=== PATIENT | male | born 1955 | race Caucasian/White ===

== ENCOUNTER 2016-08-07 11:26 | Outpatient (CLI) | payer OTHER | END 2016-08-07 11:27 | disposition home or self-care (01) | DX: G47.33 Obstructive sleep apnea (adult) (pediatric) (principal) ==

== ENCOUNTER 2016-08-23 08:00 | Outpatient (CLI) | payer OTHER | END 2016-08-23 08:01 | disposition home or self-care (01) | DX: M25.50 Pain in unspecified joint (principal) ==

== ENCOUNTER 2016-09-05 21:56 | Outpatient (CLI) | payer OTHER | END 2016-09-05 21:57 | disposition home or self-care (01) | DX: G47.33 Obstructive sleep apnea (adult) (pediatric) (principal); Z68.38 Body mass index [BMI] 38.0-38.9, adult ==

== ENCOUNTER 2016-09-24 09:29 | Outpatient (CLI) | payer OTHER | END 2016-09-24 09:30 | disposition home or self-care (01) | LOC: SC 09:29 | PROVIDERS: ATTEND Internal Medicine Pulmonary Disease | DX: G47.33 Obstructive sleep apnea (adult) (pediatric) (principal) | CPT/HCPCS: 99212; 99213 ==

== ENCOUNTER 2016-11-08 08:54 | Outpatient (CLI) | payer OTHER ==
[2016-11-08 13:37] LABS: CALCIUM 9.2 mg/dL (8.5-10.3); CREATININE 1.1 mg/dL (0.6-1.2); POTASSIUM 4.1 mmol/L (3.5-5.0)
== END 2016-11-08 08:55 | disposition home or self-care (01) ==
LOC: LAB.WCP 08:54
PROVIDERS: ATTEND Physician Assistant Medical
DX: N28.9 Disorder of kidney and ureter, unspecified (principal)
CPT/HCPCS: 36415; 80048

== ENCOUNTER 2016-12-26 14:00 | Outpatient (CLI) | payer OTHER ==
[2016-12-28 16:26] LABS: TEST RESULT REPORT (())
== END 2016-12-26 14:01 | disposition home or self-care (01) ==
LOC: LAB.WCP 14:00
PROVIDERS: ATTEND Internal Medicine Rheumatology
DX: M25.50 Pain in unspecified joint (principal); M79.1 Myalgia
CPT/HCPCS: 36415; 81599; 82550; 84443; 85651; 86140; 86200; 86812

== ENCOUNTER 2017-02-07 09:49 | Outpatient (CLI) | payer OTHER ==
[2017-02-07 09:33] LABS: CALCIUM 9.5 mg/dL (8.5-10.3); POTASSIUM 4.1 mmol/L (3.5-5.0)
[2017-02-07] MEDS ORDERED: GADOBUTROL 15 MMOL/15 ML VIAL ONE (10:14)
--- NOTE | 2017-02-08 12:03 | MRI Report ---
EXAM: MRI LUMBAR SPINE WITHOUT AND WITH CONTRAST EXAM DATE: 02/07/2017 11:18 AM. CLINICAL HISTORY: Degenerative disk disease, lumbar spine. COMPARISONS: MRI lumbar spine 07/05/2016. TECHNIQUE: Multiplanar, multisequence T1-weighted and fluid-sensitive sequences of the lumbar spine f rom T12 to S1 before and after administration of intravenous contrast. IV contrast: 13 mL IV Gadavist . Other: None. FINDINGS: Spinal Cord: The conus terminates at L1-L2. No signal abnormality in the visualized spinal cord. Alignment: Normal. No scoliosis or spondylolisthesis. Bone Marrow: Five lup-ylx-lvyegaq lumbar vertebral bodies are assumed. No gross fractures or bone les ions. No bone marrow edema or abnormal enhancement. Disk Levels/Facets: T12-L1: Unremarkable. L1-L2: Unremarkable. L2-L3: Disk desiccation, circumferential bulge, right greater than left facet arthropathy and facet j oint effusion. Synovial cyst formation. Mild bilateral subarticular narrowing and mild canal narrowin g. Mild bilateral foraminal narrowing. L3-L4: Disk desiccation. Mild bilateral facet arthropathy and ligamentum flavum thickening. No signif icant canal or subarticular narrowing. Thhs-vk-sopecbre bilateral foraminal narrowing. A focal right extraforaminal extrusion is seen (image 13 series 401) measuring 8 mm, abutting and deforming the kaila tral aspect of the right L3 nerve root. If symptomatic, could be correlated with right L3 radiculopat hy. L4-L5: Disk desiccation. Circumferential bulge. Postoperative changes of right hemilaminotomy. No sig nificant spinal canal or subarticular narrowing. Moderate right foraminal narrowing. Right L4 nerve r oots appear compressed between the right foraminal disk and hypertrophic right L4-L5 facet, although there is ample fat surrounding the exiting nerve root otherwise. L5-S1: Mild bilateral facet arthropathy with significant canal or foraminal narrowing. Spinal Canal: No enhancing masses within the spinal canal. No epidural abscess. Musculature: Normal. No edema, abnormal enhancement, or fatty atrophy. Other: The visualized pelvic cavity is unremarkable. IMPRESSION: 1. Chronic postsurgical changes of right hemilaminotomy at L4-L5. No recurrent disk herniation or imp ingement of the nerve roots at this level. 2. At L2-L3, circumferential bulge, mild bilateral foraminal and subarticular narrowing. 3. At L3-L4, circumferential bulge and bilateral facet arthropathy. Mild subarticular narrowing. A fo kamala right extraforaminal protrusion is seen abutting and deforming the exiting right L3 nerve root. T his could be correlated with right L3 radiculopathy. 4. At L4-L5, bilateral facet arthropathy and circumferential bulge. Moderate bilateral foraminal narr owing around the exiting L4 nerve roots although relatively similar to preoperative MRI 07/05/2006. Comment: The following findings are so common in adults without low back pain that while we report th eir presence, they must be interpreted with caution and in the context of the clinical situation. (Re fiona Liao et al, Spine 2001) Prevalence of findings in patients without low back pain: Disk degeneration (any evidence): 92% Disk desiccation/T2 signal loss: 83% Disk height loss: 56% Disk bulge: 64% Disk protrusion: 32% Annular tear/high intensity zone: 38% [facility] Referring Provider Line: [phone] SITE ID: [id number]
== END 2017-02-07 09:50 | disposition home or self-care (01) ==
LOC: DI 09:49
PROVIDERS: ATTEND Physician Assistant Medical
DX: M51.36 Other intervertebral disc degeneration, lumbar region (principal); M47.896 Other spondylosis, lumbar region; M51.26 Other intervertebral disc displacement, lumbar region
CPT/HCPCS: 36415; 72158; 80048; A9585

== ENCOUNTER 2017-05-03 08:43 | Outpatient (CLI) | payer OTHER ==
[2017-05-03 13:00] LABS: BASOPHILS # (AUTO) 0.2 10^3/uL (0.0-0.1); BASOPHILS % (AUTO) 2.2 %; EOSINOPHILS % (AUTO) 12.8 %; HGB - HEMOGLOBIN 15.2 g/dL (14.0-18.0); LYMPHOCYTES # (AUTO) 1.9 10^3/uL (1.5-3.5); MEAN CORPUSCULAR HEMOGLOBIN 29.7 pg (27.0-31.0); MEAN CORPUSCULAR HGB CONC 34.1 g/dL (32.0-36.0); MEAN CORPUSCULAR VOLUME 86.9 fL (80.0-94.0); MEAN PLATELET VOLUME 9.1 fL (7.4-11.4); MONOCYTES # (AUTO) 0.5 10^3/uL (0.0-1.0); MONOCYTES % (AUTO) 5.9 %; NEUTROPHILS # (AUTO) 4.4 10^3/uL (1.5-6.6); NEUTROPHILS % (AUTO) 55.1 %; PLT - PLATELET COUNT 216 10^3/uL (130-450); RED BLOOD COUNT 5.12 10^6/uL (4.70-6.10); RED CELL DISTRIBUTION WIDTH 12.9 % (12.0-15.0); WHITE BLOOD COUNT 7.9 x10^3/uL (4.8-10.8)
[2017-05-03 13:22] LABS: ALBUMIN 4.3 g/dL (3.2-5.5); ALBUMIN/GLOBULIN RATIO 1.5 (1.0-2.2); ALKALINE PHOSPHATASE 61 IU/L (42-121); ALT ALANINE AMINOTRANSFERASE 27 IU/L (10-60); AST ASPARTATE AMINOTRANSFERASE 23 IU/L (10-42); BILIRUBIN,TOTAL 0.7 mg/dL (0.2-1.0); BUN - BLOOD UREA NITROGEN 17 mg/dL (6-20); CALCIUM 9.4 mg/dL (8.5-10.3); CARBON DIOXIDE - CO2 25 mmol/L (21-32); CHLORIDE 102 mmol/L (101-111); CHOL/HDL RATIO 6.1 (<5.0); CHOLESTEROL 300 mg/dL; CREATININE 0.8 mg/dL (0.6-1.2); GFR - MDRD 98 (>89); GLUCOSE 94 mg/dL (70-100); HDL CHOLESTEROL 49 mg/dL; LDL CHOLESTEROL,CALCULATED 207 mg/dL; LDL/HDL RATIO 4.2 (<3.6); SODIUM 135 mmol/L (135-145); TOTAL PROTEIN 7.1 g/dL (6.7-8.2); VLDL CHOLESTEROL 44 mg/dL
== END 2017-05-03 08:44 | disposition home or self-care (01) ==
LOC: LAB.WCP 08:43
PROVIDERS: ATTEND Physician Assistant Medical
DX: Z00.00 Encounter for general adult medical examination without abnormal findings (principal); Z12.5 Encounter for screening for malignant neoplasm of prostate; E29.1 Testicular hypofunction
CPT/HCPCS: 36415; 80050; 80061; 81599; 83721; 84153

== ENCOUNTER 2017-05-07 08:00 | Outpatient (CLI) | payer OTHER | END 2017-05-07 08:01 | disposition home or self-care (01) | LOC: LAB.WCP 08:00 | PROVIDERS: ATTEND Physician Assistant Medical | DX: Z00.00 Encounter for general adult medical examination without abnormal findings (principal); E29.1 Testicular hypofunction; Z12.5 Encounter for screening for malignant neoplasm of prostate | CPT/HCPCS: 36415; 81599; 84270; 84402; 84403 ==

== ENCOUNTER 2017-06-12 09:09 | Outpatient (CLI) | payer OTHER ==
[2017-06-12] MEDS ORDERED: ALBUTEROL NEB 2.5 MG/3 ML INH ONE (11:00)
== END 2017-06-12 09:10 | disposition home or self-care (01) ==
LOC: RT 09:09
PROVIDERS: ATTEND Physician Assistant Medical
DX: R06.00 Dyspnea, unspecified (principal)
CPT/HCPCS: 94060; 94729; J7613

== ENCOUNTER 2017-07-01 08:02 | Outpatient (CLI) | payer OTHER ==
[2017-07-01 14:02] LABS: ALBUMIN 4.3 g/dL (3.2-5.5); ALBUMIN/GLOBULIN RATIO 1.5 (1.0-2.2); ALKALINE PHOSPHATASE 64 IU/L (42-121); ALT ALANINE AMINOTRANSFERASE 45 IU/L (10-60); AST ASPARTATE AMINOTRANSFERASE 47 IU/L (10-42); BILIRUBIN,TOTAL 0.8 mg/dL (0.2-1.0); BUN - BLOOD UREA NITROGEN 13 mg/dL (6-20); CALCIUM 9.1 mg/dL (8.5-10.3); CARBON DIOXIDE - CO2 26 mmol/L (21-32); CHLORIDE 104 mmol/L (101-111); CHOL/HDL RATIO 3.4 (<5.0); CHOLESTEROL 175 mg/dL; CREATININE 0.9 mg/dL (0.6-1.2); GFR - MDRD 86 (>89); GLUCOSE 99 mg/dL (70-100); HDL CHOLESTEROL 51 mg/dL; LDL CHOLESTEROL,CALCULATED 80 mg/dL; LDL/HDL RATIO 1.6 (<3.6); SODIUM 135 mmol/L (135-145); TOTAL PROTEIN 7.1 g/dL (6.7-8.2); VLDL CHOLESTEROL 44 mg/dL
== END 2017-07-01 08:03 | disposition home or self-care (01) ==
LOC: LAB.WCP 08:02
PROVIDERS: ATTEND Physician Assistant Medical
DX: E78.5 Hyperlipidemia, unspecified (principal)
CPT/HCPCS: 36415; 80053; 80061; 83721

== ENCOUNTER 2017-07-03 08:30 | Outpatient (CLI) | payer OTHER | END 2017-07-03 08:31 | disposition home or self-care (01) | LOC: LAB.WCP 08:30 | PROVIDERS: ATTEND Physician Assistant Medical | DX: M51.36 Other intervertebral disc degeneration, lumbar region (principal) | CPT/HCPCS: 80307; 80354; 80361; 80362; 80365; 81599 ==

== ENCOUNTER 2017-11-20 08:00 | Outpatient (CLI) | payer OTHER ==
[2017-11-20 12:55] LABS: ALBUMIN 4.1 g/dL (3.2-5.5); ALBUMIN/GLOBULIN RATIO 1.5 (1.0-2.2); ALKALINE PHOSPHATASE 61 IU/L (42-121); ALT ALANINE AMINOTRANSFERASE 41 IU/L (10-60); AST ASPARTATE AMINOTRANSFERASE 32 IU/L (10-42); BILIRUBIN,TOTAL 0.8 mg/dL (0.2-1.0); BUN - BLOOD UREA NITROGEN 14 mg/dL (6-20); CALCIUM 9.1 mg/dL (8.5-10.3); CARBON DIOXIDE - CO2 26 mmol/L (21-32); CHLORIDE 104 mmol/L (101-111); CHOLESTEROL 151 mg/dL; CREATININE 0.9 mg/dL (0.6-1.2); GFR - MDRD 86 (>89); GLUCOSE 103 mg/dL (70-100); HDL CHOLESTEROL 45 mg/dL; LDL CHOLESTEROL,CALCULATED 73 mg/dL; SODIUM 136 mmol/L (135-145); TOTAL PROTEIN 6.8 g/dL (6.7-8.2); VLDL CHOLESTEROL 33 mg/dL
[2017-11-20 12:56] LABS: CHOL/HDL RATIO 3.4 (<5.0); LDL/HDL RATIO 1.6 (<3.6)
== END 2017-11-20 08:01 | disposition home or self-care (01) ==
LOC: LAB.WCP 08:00
PROVIDERS: ATTEND Physician Assistant Medical
DX: E78.5 Hyperlipidemia, unspecified (principal)
CPT/HCPCS: 36415; 80053; 80061; 83721

== ENCOUNTER 2018-07-03 08:46 | Outpatient (CLI) | payer OTHER ==
--- NOTE | 2018-07-03 11:29 | XRAY Report ---
Reason: WHEEZING,DYSPNEA ON EXERTION,BACK PAIN THORACIC Procedure Date: 07/03/2018 Accession Number: [id number] / [id number] Procedure: WCP - Chest 2 View X-Ray CPT Code: 41891 FULL RESULT: EXAM: CHEST RADIOGRAPHY EXAM DATE: 07/03/2018 08:56 AM. CLINICAL HISTORY: Wheezing, dyspnea on exertion, back pain thoracic. COMPARISON: Chest 2 view 05/10/2017 10:38 AM. TECHNIQUE: 2 views. FINDINGS: Lungs/Pleura: No focal opacities evident. No pleural effusion. No pneumothorax. Normal volumes. Mediastinum: Prominent pulmonary arteries and a stable cardiomediastinal silhouette, no cardiac enlargement. Other: None. IMPRESSION: No acute airspace disease. RAD[facility]
== END 2018-07-03 08:47 | disposition home or self-care (01) ==
LOC: DI.WCP 08:46
PROVIDERS: ATTEND Nurse Practitioner
DX: R06.2 Wheezing (principal); R06.09 Other forms of dyspnea; M54.6 Pain in thoracic spine
CPT/HCPCS: 71046

== ENCOUNTER 2018-07-15 11:09 | Outpatient (CLI) | payer OTHER ==
--- NOTE | 2018-07-15 12:55 | XRAY Report ---
Reason: FOOT PAIN, RIGHT Procedure Date: 07/15/2018 Accession Number: [id number] / [id number] Procedure: WCP - Foot 2 View RT CPT Code: FULL RESULT: EXAM: RIGHT FOOT RADIOGRAPHY EXAM DATE: 07/15/2018 11:26 AM. CLINICAL HISTORY: Pain fifth toe. COMPARISON: None. TECHNIQUE: 2 views. FINDINGS: Bones: Normal. No fractures or bone lesions. Joints: Normal. No subluxations. Soft Tissues: Normal. No soft tissue swelling. IMPRESSION: Normal foot radiography. RADIA
--- NOTE | 2018-07-15 12:55 | XRAY Report ---
Reason: URI Procedure Date: 07/15/2018 Accession Number: [id number] / [id number] Procedure: WCP - Chest 2 View X-Ray CPT Code: 72152 FULL RESULT: EXAM: CHEST RADIOGRAPHY EXAM DATE: 07/15/2018 11:26 AM. CLINICAL HISTORY: Upper respiratory infection. COMPARISON: CHEST 2 VIEW 07/03/2018 8:44 AM. TECHNIQUE: 2 views. FINDINGS: Lungs/Pleura: No focal opacities evident. No pleural effusion. No pneumothorax. Normal volumes. Mediastinum: Heart and mediastinal contours are unremarkable. Other: None. IMPRESSION: Normal 2-view chest radiography. RADIA
== END 2018-07-15 11:10 | disposition home or self-care (01) ==
LOC: DI.WCP 11:09
PROVIDERS: ATTEND Physician Assistant Medical
DX: J06.9 Acute upper respiratory infection, unspecified (principal); M79.671 Pain in right foot
CPT/HCPCS: 71046

== ENCOUNTER 2018-08-26 07:41 | Outpatient (CLI) | payer OTHER ==
[2018-08-26 13:05] LABS: BASOPHILS # (AUTO) 0.1 10^3/uL (0.0-0.1); BASOPHILS % (AUTO) 1.3 %; EOSINOPHILS # (AUTO) 0.8 10^3/uL (0.0-0.7); EOSINOPHILS % (AUTO) 10.8 %; LYMPHOCYTES % (AUTO) 25.4 %; MEAN CORPUSCULAR HEMOGLOBIN 29.1 pg (27.0-31.0); MEAN PLATELET VOLUME 9.4 fL (7.4-11.4); MONOCYTES # (AUTO) 0.5 10^3/uL (0.0-1.0); MONOCYTES % (AUTO) 6.4 %; NEUTROPHILS # (AUTO) 4.4 10^3/uL (1.5-6.6); NEUTROPHILS % (AUTO) 56.1 %; PLT - PLATELET COUNT 231 10^3/uL (130-450); RED BLOOD COUNT 5.15 10^6/uL (4.70-6.10); RED CELL DISTRIBUTION WIDTH 13.6 % (12.0-15.0); WHITE BLOOD COUNT 7.8 x10^3/uL (4.8-10.8)
[2018-08-26 13:13] LABS: ALBUMIN 4.5 g/dL (3.2-5.5); ALBUMIN/GLOBULIN RATIO 1.6 (1.0-2.2); ALKALINE PHOSPHATASE 57 IU/L (42-121); ALT ALANINE AMINOTRANSFERASE 36 IU/L (10-60); AST ASPARTATE AMINOTRANSFERASE 29 IU/L (10-42); BILIRUBIN,TOTAL 0.7 mg/dL (0.2-1.0); BUN - BLOOD UREA NITROGEN 20 mg/dL (6-20); CALCIUM 9.4 mg/dL (8.5-10.3); CARBON DIOXIDE - CO2 23 mmol/L (21-32); CHLORIDE 102 mmol/L (101-111); CHOL/HDL RATIO 3.6 (<5.0); CHOLESTEROL 177 mg/dL; GFR - MDRD 76 (>89); GLUCOSE 93 mg/dL (70-100); HDL CHOLESTEROL 49 mg/dL; LDL CHOLESTEROL,CALCULATED 102 mg/dL; LDL/HDL RATIO 2.1 (<3.6); SODIUM 136 mmol/L (135-145); TOTAL PROTEIN 7.3 g/dL (6.7-8.2); VLDL CHOLESTEROL 26 mg/dL
== END 2018-08-26 07:42 | disposition home or self-care (01) ==
LOC: LAB.WCP 07:41
PROVIDERS: ATTEND Physician Assistant Medical
DX: Z00.00 Encounter for general adult medical examination without abnormal findings (principal); E78.5 Hyperlipidemia, unspecified; Z12.5 Encounter for screening for malignant neoplasm of prostate
CPT/HCPCS: 36415; 80053; 80061; 83721; 84153; 84443; 85025

== ENCOUNTER 2019-02-02 10:48 | Outpatient (CLI) | payer OTHER ==
--- NOTE | 2019-02-02 11:47 | SLEEP CARE CONSULTATION ---
Information from patient questionnaire entered by Aubrie Smith. I have reviewed and concur with the information entered by Aubrie Smith. This document represents the service I personally performed and the decisions made by me, Nati Duong, RN, MSN, DIETARY TECH. History of Present Illness Previous diagnosis: Severe, Obstructive Sleep Apnea-Hypopnea Syndrome AHI: 33.9 Reason for CPAP/BiPAP follow up: annual Equipment type: CPAP Equipment obtained from: [facility] (having difficulty getting supplies) Mask style: Nasal (Dreamwear) Mask brand: Respironics Backup mask available: No (keep the current mask when replaced for spare) Last cushion change: 2 months ago due to problems getting supplies. Prior sleep studies: Yes Year and Where: 2007 [facility] Sleep [facility] CPAP Compliance Data - Data Reviewed with Patient Average duration of nightly device use: 7H 8M Compliance rate %: 93.3 Current pressure setting (cmH2O): 8-12 Humidity setting: OFF Heated hose settinFF Average residual AHI: 5.4 Central apnea: 0.7 Obstructive apnea: 1.7 Hypopnea: 3.0 Subjective Missed days of use due to: reports: other (due to back pain when sleeps in recliner. ) Patient concerns: reports: dry mouth, nose, throat (rare). denies: aerophagia, mask discomfort, air blowing in eyes, mask leak noise, condensation in mask/hose, nasal congestion, epistaxis Observed to snore while using device: Yes (noted occasionally) Current pressure setting perceived as: comfortable On therapy, patient: reports: sleeping better (cant sleep without CPAP), awakening more refreshed, being more awake and alert during the day, more rested overall, drowsiness while driving Initial [place] Sleepiness Scale score: 2 Current [place] Sleepiness Scale score: 2 Allergies and Home Medications Known drug allergies: Yes (hydroxyzine, piroxicam, topamax) Home medication list reviewed: Yes Allergy and home medication list: diclofenac 75mg twice a day Pristig ER 100mg daily Ability 10mg daily prilosec 20mg twice daily oxycodone 5mg 1-2 tablets daily up to 3 max as needed. Physical Exam Blood Pressure: 110/70 Heart Rate: 81 O2 Saturation: 96 Height: 6 ft 2 in Weight: 292 lb 3.2 oz Body Mass Index: 37.5 BMI Classification: Obesity Class 2 Impression and Plan 1. Obstructive Sleep Apnea-Hypopnea Syndrome, severe, with good treatment compliance and slightly elevated residual apnea. On CPAP therapy, the patient has better sleep quality and is more rested overall. For elevated residual AHI, I will change his autoCPAP range to [phone]. He is to contact me if pressure change uncomfortable or if snore not resolved. He was informed how his weight gain could have increased the increase in pressure need. He is currently trying to lose weight. He was informed of symptoms to report for further pressure adjustment. When unable to sleep in bed due to back pain, he is advised to take CPAP with him by using an electric outlet strip by bed and chair for ease of transfer. For his concerns about supplies, I informed him that he could transfer to another company and he would like to . I will have the scheduling coordinator inform him of his options. A DWO will be made. Patient's apnea severity and rationale for treatment to reduce apnea, improve sleep quality and reduce cardiovascular and cerebrovascular events was reviewed. I also reviewed the benefit of consistent device use of CPAP for his anxiety and depression. * * Change CPAP pressure to 9-15 cmH2O * transfer to new DME * Add electric outlet strip to bedside and recliner for ease of CPAP use * Notify me if snoring with mask or feeling that the pressure is too much or too little * Attempt to lose weight * Return for follow up in 1 year , or sooner if concerns arise I spent 100% of this 30 minute visit face to face with the patient with greater than 50% of this was spent time counseling the patient and coordination of care.
[2019-02-02 11:48] VITALS: BP 110/70
== END 2019-02-02 10:49 | disposition home or self-care (01) ==
LOC: SC 10:48
PROVIDERS: ATTEND Nurse Practitioner Family
DX: G47.33 Obstructive sleep apnea (adult) (pediatric) (principal); E66.9 Obesity, unspecified; Z68.37 Body mass index [BMI] 37.0-37.9, adult
CPT/HCPCS: 99212; 99214

== ENCOUNTER 2020-07-13 07:00 | Outpatient (CLI) | payer OTHER ==
--- NOTE | 2020-07-13 18:14 | XRAY Report ---
PROCEDURE: Chest 2 View X-Ray INDICATIONS: DYSPNEA ON EXERTION TECHNIQUE: 2 view(s) of the chest. COMPARISON: 07/15/2018 2 view chest. FINDINGS: Surgical changes and devices: None. Lungs and pleura: No pleural effusions or pneumothorax. Lungs are mildly abnormal with a mild inter stitial prominence. Mediastinum: Mediastinal contours are normal. Heart size is normal. Bones and chest wall: No suspicious bony abnormalities. Soft tissues appear unremarkable. IMPRESSION: Nonspecific mild interstitial prominence, no pneumonia found. No sign of CHF. The heart size is not enlarged. Reviewed by: Francisco Beyer MD on 07/13/2020 5:13 PM [place] Approved by: Francisco Beyer MD on 07/13/2020 5:13 PM [facility] Station ID: [id number]
[2020-07-13 18:44] LABS: CALCIUM 9.1 mg/dL (8.5-10.3); CREATININE 1.1 mg/dL (0.6-1.2); POTASSIUM 4.5 mmol/L (3.5-5.0)
== END 2020-07-13 23:59 | disposition home or self-care (01) ==
LOC: DI.WCP 07:00
PROVIDERS: ATTEND Physician Assistant Medical
DX: R06.09 Other forms of dyspnea (principal)
CPT/HCPCS: 36415; 80048

== ENCOUNTER 2020-07-21 09:19 | Outpatient (CLI) | payer OTHER ==
[2020-07-21] MEDS ORDERED: ALBUTEROL 1 PUFF INH STA (10:37)
== END 2020-07-21 09:20 | disposition home or self-care (01) ==
LOC: RT 09:19
PROVIDERS: ATTEND Physician Assistant Medical
DX: R06.09 Other forms of dyspnea (principal)
CPT/HCPCS: 94060; 94729

== ENCOUNTER 2020-08-10 09:08 | Outpatient (CLI) | payer OTHER ==
[2020-08-10] MEDS ORDERED: IOPAMIDOL-300 100 ML VIAL ONE (09:10)
[2020-08-10] MEDS ORDERED: IOPAMIDOL-300 100 ML VIAL IVP ONE (09:48)
--- NOTE | 2020-08-10 16:29 | CT Report ---
PROCEDURE: CHEST W INDICATIONS: DYSPNEA ON EXERTION CONTRAST: IV CONTRAST: Isovue 300 ml: 100 PO CONTRAST: *NO PO CONTRAST TECHNIQUE: After the administration of intravenous contrast, 5 mm thick sections acquired from the pulmonary api zaina to the posterior costophrenic angles. 7 mm thick coronal MIP reformats were acquired. For radia tion dose reduction, the following was used: automated exposure control, adjustment of mA and/or kV according to patient size. COMPARISON: None. FINDINGS: Image quality: Excellent. Lungs and pleura: No acute air space opacities. No pleural effusions or pneumothorax. Central and peripheral airways are patent and normal in caliber. Mediastinum: Heart size is normal. No pericardial effusion. No mediastinal or hilar adenopathy by size criteria. Thoracic aorta and central pulmonary arteries are normal in size. Esophagus is eloina l in caliber. No hiatal hernia. Bones and chest wall: No suspicious bony lesions. No vertebral body compression fractures. No axil rae or supraclavicular adenopathy by size criteria. Thyroid gland appears normal where well seen. Abdomen: Visualized upper abdominal solid organs appear normal. Upper abdominal bowel loops are nor mal in caliber. IMPRESSION: No pulmonary embolus seen, no evidence of COPD or pneumonia from this study. Source of dyspnea on exe rtion is not found. Reviewed by: Francisco Beyer MD on 08/10/2020 4:28 PM PDT Approved by: Francisco Beyer MD on 08/10/2020 4:28 PM PDT Station ID: [id number]
== END 2020-08-10 09:09 | disposition home or self-care (01) ==
LOC: DI 09:08
PROVIDERS: ATTEND Physician Assistant Medical
DX: R06.09 Other forms of dyspnea (principal)
CPT/HCPCS: 71260; Q9967

== ENCOUNTER 2020-10-10 08:00 | Outpatient (CLI) | payer OTHER ==
[2020-10-10 13:37] LABS: CHOL/HDL RATIO 5.4 (<5.0); CHOLESTEROL 217 mg/dL; HDL CHOLESTEROL 40 mg/dL; LDL CHOLESTEROL,CALCULATED 151 mg/dL; LDL/HDL RATIO 3.8 (<3.6); TRIGLYCERIDES 132 mg/dL; VLDL CHOLESTEROL 26 mg/dL
== END 2020-10-10 23:59 | disposition home or self-care (01) ==
LOC: LAB.WCP 08:00
PROVIDERS: ATTEND Physician Assistant Medical
DX: E78.5 Hyperlipidemia, unspecified (principal); E55.9 Vitamin D deficiency, unspecified
CPT/HCPCS: 36415; 80061; 82306; 83721

== ENCOUNTER 2020-11-28 13:49 | Outpatient (CLI) | payer MEDICARE, OTHER | END 2020-11-28 23:59 | disposition home or self-care (01) | LOC: LAB.N 13:49 | PROVIDERS: ATTEND Family Medicine | DX: R07.89 Other chest pain (principal); Z20.822 Contact with and (suspected) exposure to COVID-19 ==

== ENCOUNTER 2020-11-28 13:52 | Outpatient (CLI) | payer MEDICARE, OTHER ==
--- NOTE | 2020-11-28 16:02 | XRAY Report ---
PROCEDURE: Chest 2 View X-Ray INDICATIONS: R SIDED CHEST PX TECHNIQUE: 2 view(s) of the chest. COMPARISON: None. FINDINGS: Surgical changes and devices: None. Lungs and pleura: No pleural effusions or pneumothorax. Lungs are clear. Mediastinum: Mediastinal contours are normal. Heart size is normal. Bones and chest wall: No suspicious bony abnormalities. Soft tissues appear unremarkable. IMPRESSION: No acute cardiopulmonary abnormality. Reviewed by: Natalio Sanchez on 11/28/2020 4:01 PM PDT Approved by: Natalio Sanchez on 11/28/2020 4:01 PM PDT Station ID: [id number]
== END 2020-11-28 23:59 | disposition home or self-care (01) ==
LOC: DI.N 13:52
PROVIDERS: ATTEND Family Medicine
DX: R07.89 Other chest pain (principal)

== ENCOUNTER 2021-06-21 08:45 | Outpatient (CLI) | payer MEDICARE, OTHER ==
[2021-06-21 09:27] VITALS: BP 137/70
--- NOTE | 2021-06-21 09:28 | SLEEP CARE CONSULTATION ---
Information from patient questionnaire entered by Claudy Oseguera MA. I have reviewed and concur with the information entered by Claudy Oseguera MA. This document represents the service I personally performed and the decisions made by , Kika Hinds ARNP. History of Present Illness Service Date and Time: 06/21/2021 0845 Previous diagnosis: Severe, Obstructive Sleep Apnea-Hypopnea Syndrome AHI: 33.9 Reason for follow up: annual (LAST SEEN 01/2019,) Equipment type: CPAP Equipment obtained from: Other ([facility]; not getting supplies, needs prescription) Mask style: Nasal (Dreamwear) Backup mask available: Yes (old mask) Last cushion change: 2 weeks ago Prior sleep studies: Yes Year and Where: 2007 [facility] Sleep [facility] [place] HPI additional information: REA FRANK was diagnosed to have severe, AHI 33.9, obstructive sleep apnea- hypopnea syndrome and returned today for CPAP therapy annual follow-up. Sleep Study - Results Prior sleep studies: Yes Year and Where: 2007 [facility] CPAP Compliance Data - Data Reviewed with Patient Average duration of nightly device use: 6 HOURS 52 MINUTES Compliance rate %: 91.7 Current pressure setting (cmH2O): 9-15 Humidity setting: OFF Heated hose setting: OFF Average residual AHI: 5.2 Average large leak: 18 MINUTES 3 SECONDS Subjective Missed days of use due to: reports: illness, other (INSOMINA) Patient concerns: denies: aerophagia, mask discomfort, air blowing in eyes, mask leak noise, condensation in mask/hose, nasal congestion, dry mouth, nose, throat, epistaxis Observed to snore while using device: No Current pressure setting perceived as: comfortable On therapy, patient: reports: sleeping better, awakening more refreshed, being more awake and alert during the day, more rested overall. denies: drowsiness while driving Initial [place] Sleepiness Scale score: 2 Current [place] Sleepiness Scale score: 4 (2021) Allergies and Home Medications Known drug allergies: No Drug allergies reviewed: Yes Home medication list reviewed: Yes (tried ambien, amitriptyline, tramadol but not using anymore (did not work)) Allergy and home medication list: Allergies hydroxyzine Allergy (Verified 07/27/14 17:42) Unknown piroxicam [From Feldene] Allergy (Verified 07/27/14 17:42) Edema topiramate [From Topamax] Adverse Reaction (Verified 07/27/14 17:42) Unknown Review of Systems Review of systems same as previous: No (Covid in December, insomnia since (long covid)) Physical Exam Vital signs obtained and entered by: Robin OSEGUERA CMA AAJAVON Blood Pressure: 137/70 (LEFT, 69 PULSE, RESP 14, ) Cuff size: wrist Heart Rate: 70 O2 Saturation: 94 (NORMAL LOW 90'S, SHORT OB BREATH) Height: 6 ft 2 in Weight: 276 lb (CLOTHED INFO PER PT) Weight change since last visit: 16 lb loss Body Mass Index: 35.4 BMI Classification: Obese Impression and Plan 1. Obstructive Sleep Apnea-Hypopnea Syndrome, severe, with good treatment compliance and good apnea control with minimal elevation of residual AHI. On CPAP therapy, the patient has better sleep quality and is more rested overall. Patient has a Dreamstation. Patient has already registered their device for the recall. Patient denies any black particles seen in machine or hoses, any unusual odors coming from device. Patient has not experienced any physical symptoms such as upper airway irritation, headache, skin or eye irritation, asthma, nausea/vomiting, difficulty breathing or chest pain. If patient is not able to sleep due to waking up choking, gasping for air or other respiratory distress that they may decide to continue using it until it is either replaced or repaired. Since the patients current machine is almost 5 years old and the patient is opting to try to update their device with a device that is not on the recall. Patient voiced understanding and agreement with plan. Patient's apnea severity and rationale for treatment to reduce apnea, improve sleep quality and reduce cardiovascular and cerebrovascular events was reviewed. I also reviewed the benefit of consistent device use of CPAP for depression/anxiety. * Continue auto CPAP pressure at 9-15 cmH2O * Update device * Updates supplies as needed * Notify me if snoring with mask or feeling that the pressure is too much or too little * Attempt to lose weight * Call this office if any problems using CPAP * Return for follow up one month after obtaining new device, or sooner if concerns arise Counseling Topics: Spare mask, Weight loss health impact Visit Type: In Office Time Spent with Patient (minutes): 20 Provider Statement: I spent 100% of the Face to Face Visit with the patient with greater than 50% spent counseling the patient and coordination of care.
== END 2021-06-21 08:46 | disposition home or self-care (01) ==
LOC: SC 08:45
PROVIDERS: ATTEND Nurse Practitioner Family
DX: G47.33 Obstructive sleep apnea (adult) (pediatric) (principal); E66.9 Obesity, unspecified; Z68.35 Body mass index [BMI] 35.0-35.9, adult
CPT/HCPCS: 99213; G0463; 99212

== ENCOUNTER 2021-07-18 07:40 | Outpatient (CLI) | payer MEDICARE, OTHER ==
[2021-07-18 12:44] LABS: ALBUMIN 4.3 g/dL (3.2-5.5); ALBUMIN/GLOBULIN RATIO 1.7 (1.0-2.2); ALKALINE PHOSPHATASE 58 IU/L (42-121); ALT ALANINE AMINOTRANSFERASE 39 IU/L (10-60); AST ASPARTATE AMINOTRANSFERASE 29 IU/L (10-42); BILIRUBIN,TOTAL 0.8 mg/dL (0.2-1.0); BUN - BLOOD UREA NITROGEN 15 mg/dL (6-20); CARBON DIOXIDE - CO2 27 mmol/L (21-32); CHLORIDE 100 mmol/L (101-111); CHOL/HDL RATIO 4.5 (<5.0); CHOLESTEROL 253 mg/dL; GFR - MDRD 75 (>89); GLUCOSE 101 mg/dL (70-100); HDL CHOLESTEROL 56 mg/dL; LDL CHOLESTEROL,CALCULATED 173 mg/dL; LDL/HDL RATIO 3.1 (<3.6); SODIUM 135 mmol/L (135-145); TOTAL PROTEIN 6.9 g/dL (6.7-8.2); TRIGLYCERIDES 120 mg/dL; VLDL CHOLESTEROL 24 mg/dL
[2021-07-18 12:49] LABS: BASOPHILS # (AUTO) 0.1 10^3/uL (0.0-0.1); EOSINOPHILS # (AUTO) 0.6 10^3/uL (0.0-0.7); HCT - HEMATOCRIT 45.7 % (42.0-52.0); LYMPHOCYTES # (AUTO) 2.3 10^3/uL (1.5-3.5); LYMPHOCYTES % (AUTO) 32.8 %; MEAN CORPUSCULAR HEMOGLOBIN 29.9 pg (27.0-31.0); MEAN CORPUSCULAR HGB CONC 32.8 g/dL (32.0-36.0); MEAN CORPUSCULAR VOLUME 91.2 fL (80.0-94.0); MONOCYTES # (AUTO) 0.6 10^3/uL (0.0-1.0); NEUTROPHILS # (AUTO) 3.4 10^3/uL (1.5-6.6); NEUTROPHILS % (AUTO) 47.8 %; PLT - PLATELET COUNT 250 10^3/uL (130-450); RED BLOOD COUNT 5.01 10^6/uL (4.70-6.10); RED CELL DISTRIBUTION WIDTH 12.4 % (12.0-15.0); WHITE BLOOD COUNT 7.1 x10^3/uL (4.8-10.8)
== END 2021-07-18 07:41 | disposition home or self-care (01) ==
LOC: LAB.N 07:40
PROVIDERS: ATTEND Physician Assistant Medical
DX: E78.5 Hyperlipidemia, unspecified (principal); Z12.5 Encounter for screening for malignant neoplasm of prostate; K21.9 Gastro-esophageal reflux disease without esophagitis
CPT/HCPCS: 36415; 80053; 80061; 85025; G0103; 83721; 84153

== ENCOUNTER 2022-03-09 08:06 | Outpatient (CLI) | payer MEDICARE, OTHER ==
--- NOTE | 2022-03-09 16:29 | XRAY Report ---
PROCEDURE: Foot 3 View RT INDICATIONS: CHRONIC PAIN OF RIGHT FOOT TECHNIQUE: 3 views of the foot were acquired. COMPARISON: 07/15/2018 FINDINGS: Bones: No fractures or dislocations. Bony fusion at fourth DIP joint is noted. Osteoarthritic brownlee es are noted throughout right foot most notably at first MTP joint. There is prior No suspicious bony lesions. Soft tissues: Mild soft tissue swelling over medial aspect of first MTP joint and interphalangeal all int is seen. No abnormal soft tissue calcifications. No tibiotalar joint effusion. Achilles tendon a ppears normal. IMPRESSION: Right foot osteoarthritis. No fracture or dislocation. 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 No gross soft tissue abnormalities. Reviewed by: Michael Ruiz MD on 03/09/2022 4:27 PM PDT Approved by: Michael Ruiz MD on 03/09/2022 4:27 PM PDT Station ID: [id number]
== END 2022-03-09 08:07 | disposition home or self-care (01) ==
LOC: DI 08:06
PROVIDERS: ATTEND Physician Assistant
DX: M19.071 Primary osteoarthritis, right ankle and foot (principal); M24.674 Ankylosis, right foot

== ENCOUNTER 2022-07-02 10:40 | Outpatient (CLI) | payer MEDICARE, OTHER ==
[2022-07-02 17:27] LABS: BASOPHILS # (AUTO) 0.2 10^3/uL (0.0-0.1); BASOPHILS % (AUTO) 2.3 %; EOSINOPHILS # (AUTO) 0.8 10^3/uL (0.0-0.7); EOSINOPHILS % (AUTO) 11.7 %; HGB - HEMOGLOBIN 14.6 g/dL (14.0-18.0); LYMPHOCYTES % (AUTO) 31.1 %; MEAN CORPUSCULAR HEMOGLOBIN 28.4 pg (27.0-31.0); MEAN CORPUSCULAR HGB CONC 31.7 g/dL (32.0-36.0); MEAN CORPUSCULAR VOLUME 89.5 fL (80.0-94.0); MONOCYTES # (AUTO) 0.5 10^3/uL (0.0-1.0); MONOCYTES % (AUTO) 7.5 %; NEUTROPHILS % (AUTO) 46.9 %; PLT - PLATELET COUNT 254 10^3/uL (130-450); RED BLOOD COUNT 5.14 10^6/uL (4.70-6.10); RED CELL DISTRIBUTION WIDTH 13.2 % (12.0-15.0); WHITE BLOOD COUNT 6.4 x10^3/uL (4.8-10.8)
[2022-07-02 17:52] LABS: ALBUMIN 4.5 g/dL (3.2-5.5); ALBUMIN/GLOBULIN RATIO 1.6 (1.0-2.2); ALKALINE PHOSPHATASE 76 IU/L (42-121); ALT ALANINE AMINOTRANSFERASE 27 IU/L (10-60); AST ASPARTATE AMINOTRANSFERASE 26 IU/L (10-42); BILIRUBIN,TOTAL 0.3 mg/dL (0.2-1.0); BUN - BLOOD UREA NITROGEN 15 mg/dL (6-20); CALCIUM 9.3 mg/dL (8.5-10.3); CARBON DIOXIDE - CO2 24 mmol/L (21-32); CHLORIDE 101 mmol/L (101-111); CHOL/HDL RATIO 4.8 (<5.0); CHOLESTEROL 257 mg/dL; CREATININE 0.7 mg/dL (0.6-1.2); GFR - MDRD 113 (>89); GLUCOSE 95 mg/dL (70-100); HDL CHOLESTEROL 54 mg/dL; LDL CHOLESTEROL,CALCULATED 178 mg/dL; LDL/HDL RATIO 3.3 (<3.6); POTASSIUM 4.1 mmol/L (3.5-5.0); SODIUM 134 mmol/L (135-145); TOTAL PROTEIN 7.4 g/dL (6.7-8.2); TRIGLYCERIDES 125 mg/dL; VLDL CHOLESTEROL 25 mg/dL
[2022-07-02 18:04] LABS: THYROID STIMULATING HORMONE 1.55 uIU/mL (0.34-5.60)
== END 2022-07-02 10:41 | disposition home or self-care (01) ==
LOC: LAB.N 10:40
PROVIDERS: ATTEND Physician Assistant Medical
DX: Z00.00 Encounter for general adult medical examination without abnormal findings (principal); E78.5 Hyperlipidemia, unspecified; E55.9 Vitamin D deficiency, unspecified; Z12.5 Encounter for screening for malignant neoplasm of prostate; K21.9 Gastro-esophageal reflux disease without esophagitis
CPT/HCPCS: 36415; 80053; 80061; 82306; 84443; 85025; G0103; 83721; 84153

== ENCOUNTER 2022-12-08 16:05 | Outpatient (CLI) | payer MEDICARE, OTHER ==
--- NOTE | 2022-12-08 20:02 | XRAY Report ---
PROCEDURE: Cervical Spine Complete INDICATIONS: NECK PAIN,CHRONIC TECHNIQUE: 5 views of the cervical spine were acquired, including bilateral oblique views. COMPARISON: 08/18/2014 FINDINGS: Bones: No fractures or dislocations to the T1 level. Oblique images demonstrate no bony foraminal s tenoses. There is overall straightening of the normal cervical lordosis. No significant AP alignment abnormal ity can be seen. There is at least moderate disc space narrowing seen at C5-C6, with moderate to sev ere disc space narrowing seen at C6-C7. Associated endplate irregularity and sclerosis can be seen. O n oblique images, there is moderate bilateral neuroforaminal narrowing seen at the C5-C6 and C6-C7. Soft tissues: No prevertebral soft tissue swelling. The visualized pulmonary apices are unremarkab le. IMPRESSION: Focal lower cervical spine degenerative changes are seen. The degenerative changes are c learly progressed compared to 2014. If it would be helpful for clinical management decision making, please consider a dedicated cervical spine MRI for further evaluation (assuming that there is no contraindication). Reviewed by: Frederick Phillips MD on 12/08/2022 7:00 PM BJ Approved by: Frederick Phillips MD on 12/08/2022 7:00 PM [facility] Station ID: [id number]
== END 2022-12-08 16:06 | disposition home or self-care (01) ==
LOC: DI 16:05
PROVIDERS: ATTEND Nurse Practitioner
DX: M47.812 Spondylosis without myelopathy or radiculopathy, cervical region (principal)

== ENCOUNTER 2022-12-20 08:33 | Outpatient (CLI) | payer MEDICARE, OTHER ==
--- NOTE | 2022-12-20 08:59 | Sleep Patient Instructions ---
Sleep Center Visit Summary - Patient Visit Information Reason for Visit: Annual visit for PAP therapy - Patient Instructions Additional Instructions: You will continue with CPAP therapy with pressure changed to 11-15 cmH2O. A supply prescription will be updated with your DME. We encourage you to continue to try to lose weight. Please follow up with the sleep care office in 1 year. - Clinic Information Contact: [facility] [address] [place] [address] [email or web address] T: [phone]
--- NOTE | 2022-12-20 09:01 | SLEEP CARE CONSULTATION ---
Information from patient questionnaire entered by Amy Barahona. I have reviewed and concur with the information entered by Amy Barahona. This document represents the service I personally performed and the decisions made by me, Kika Hinds ARNP. History of Present Illness Service Date and Time: 12/20/2022 0833 Previous diagnosis: Severe, Obstructive Sleep Apnea-Hypopnea Syndrome AHI: 33.9 Reason for follow up: other (LAST SEEN 06/2021) Equipment type: CPAP (YUKI PT BRINGING IN SD CARD AND MACHINE) Equipment obtained from: Other ([facility]; getting supplies) Mask style: Nasal (Dreamwear) Mask brand: Respironics Backup mask available: Yes (old mask) Last cushion change: 2 weeks Prior sleep studies: Yes Year and Where: 2007 [facility] HPI additional information: REA FRANK was diagnosed to have severe, AHI 33.9, obstructive sleep apnea- hypopnea syndrome and returned today for CPAP therapy annual follow-up. Sleep Study - Results Prior sleep studies: Yes Year and Where: 2007 [facility] CPAP Compliance Data - Data Reviewed with Patient Average duration of nightly device use: 6 hour 30 minutes Compliance rate %: 83 (303/365 days used >4 hours) Current pressure setting (cmH2O): 9-15 (avg 10.5) Average residual AHI: 5 Average large leak: 0% Subjective Missed days of use due to: reports: other (neck issues, cervical impingement) Patient concerns: denies: aerophagia, mask discomfort, air blowing in eyes, mask leak noise, condensation in mask/hose, nasal congestion, dry mouth, nose, throat, epistaxis Observed to snore while using device: No Current pressure setting perceived as: comfortable On therapy, patient: reports: sleeping better, awakening more refreshed, being more awake and alert during the day, more rested overall. denies: drowsiness w hile driving Initial King Sleepiness Scale score: 2 Current King Sleepiness Scale score: 5 (12/20/22) Allergies and Home Medications Known drug allergies: Yes (as listed) Drug allergies reviewed: Yes Home medication list reviewed: Yes (no changes) Allergy and home medication list: Allergies hydroxyzine Allergy (Verified 12/19/22 08:28) Unknown piroxicam [From Feldene] Allergy (Verified 12/19/22 08:28) Edema topiramate [From Topamax] Adverse Reaction (Verified 12/19/22 08:28) Unknown Review of Systems Review of systems same as previous: Yes (L4-L5 FUSION 03/2022; nerve impingement in neck; dysphagia) Physical Exam Vital signs obtained and entered by: AMY Becerra MA Blood Pressure: 112/62 (LEFT ARM) Cuff size: regular Heart Rate: 74 O2 Saturation: 97 Height: 6 ft 2 in Weight: 265 lb 6.4 oz Weight change since last visit: 11 lbs loss Body Mass Index: 34.0 BMI Classification: Obese Impression and Plan 1. Obstructive Sleep Apnea-Hypopnea Syndrome, severe, with good treatment compliance and good apnea control with minimal elevation of residual AHI. On CPAP therapy, the patient has better sleep quality and is more rested overall. The patients pressure will be changed to autoCPAP 11-15 cmH20 for minimal elevation of residual AHI. Patient advised to contact me if pressure change is uncomfortable so that it can be adjusted. Patient has significant improvement of their sleep apnea and is satisfied with current CPAP therapy. Patient denies problems with oral dryness, nasal congestion, epistaxis, skin irritation or aerophagia. Goals for apnea control discussed. Patient's apnea severity and rationale for treatment to reduce apnea, improve sleep quality and reduce cardiovascular and cerebrovascular events was reviewed. I also reviewed the benefit of consistent device use of CPAP for depression/anxiety. 2. Obesity, unspecified. Currently patients BMI is 34. He has lost weight. Obesity increases the risk of apnea, CPAP pressure requirements and overall health risks especially cardiovascular and diabetes. Thus patient is advised to continue to try to lose weight. * Change auto CPAP pressure to 11-15 cmH2O * Update supplies * Notify me if snoring with mask or feeling that the pressure is too much or too little * Attempt to lose weight * Call this office if any problems using CPAP * Return for follow up in 1 year, or sooner if concerns arise Counseling Topics: Spare mask, Weight loss health impact Prescriptions: Device supplies Visit Type: In Office Time Spent with Patient (minutes): 20 Provider Statement: I spent 100% of the Face to Face Visit with the patient with greater than 50% spent counseling the patient and coordination of care.
[2022-12-20 09:02] VITALS: BP 112/62; O2SAT 97
== END 2022-12-20 08:34 | disposition home or self-care (01) ==
LOC: SC 08:33
PROVIDERS: ATTEND Nurse Practitioner Family
DX: G47.33 Obstructive sleep apnea (adult) (pediatric) (principal); E66.9 Obesity, unspecified; Z68.34 Body mass index [BMI] 34.0-34.9, adult
CPT/HCPCS: 99213; G0463; 99212

== ENCOUNTER 2023-06-24 07:55 | Outpatient (CLI) | payer MEDICARE, OTHER ==
[2023-06-24 12:44] LABS: BASOPHILS # (AUTO) 0.1 10^3/uL (0.0-0.1); BASOPHILS % (AUTO) 1.9 %; EOSINOPHILS # (AUTO) 0.7 10^3/uL (0.0-0.7); EOSINOPHILS % (AUTO) 11.2 %; HCT - HEMATOCRIT 44.3 % (42.0-52.0); HGB - HEMOGLOBIN 14.1 g/dL (14.0-18.0); LYMPHOCYTES # (AUTO) 1.8 10^3/uL (1.5-3.5); LYMPHOCYTES % (AUTO) 30.1 %; MEAN CORPUSCULAR HEMOGLOBIN 28.4 pg (27.0-31.0); MEAN CORPUSCULAR HGB CONC 31.8 g/dL (32.0-36.0); MEAN CORPUSCULAR VOLUME 89.1 fL (80.0-94.0); MEAN PLATELET VOLUME 11.2 fL (7.4-11.4); MONOCYTES # (AUTO) 0.4 10^3/uL (0.0-1.0); MONOCYTES % (AUTO) 6.7 %; NEUTROPHILS # (AUTO) 2.9 10^3/uL (1.5-6.6); NEUTROPHILS % (AUTO) 49.9 %; PLT - PLATELET COUNT 270 10^3/uL (130-450); RED BLOOD COUNT 4.97 10^6/uL (4.70-6.10); RED CELL DISTRIBUTION WIDTH 12.3 % (12.0-15.0); WHITE BLOOD COUNT 5.8 x10^3/uL (4.8-10.8)
[2023-06-24 13:08] LABS: ALBUMIN 4.4 g/dL (3.2-5.5); ALBUMIN/GLOBULIN RATIO 1.7 (1.0-2.2); ALKALINE PHOSPHATASE 77 IU/L (42-121); ALT ALANINE AMINOTRANSFERASE 20 IU/L (10-60); AST ASPARTATE AMINOTRANSFERASE 19 IU/L (10-42); BILIRUBIN,TOTAL 0.5 mg/dL (0.2-1.0); BUN - BLOOD UREA NITROGEN 17 mg/dL (6-20); CALCIUM 9.8 mg/dL (8.5-10.3); CARBON DIOXIDE - CO2 26 mmol/L (21-32); CHLORIDE 104 mmol/L (101-111); CHOL/HDL RATIO 4.4 (<5.0); CHOLESTEROL 235 mg/dL; CREATININE 0.7 mg/dL (0.6-1.3); GFR - MDRD 112 (>89); GLUCOSE 98 mg/dL (74-104); HDL CHOLESTEROL 53 mg/dL; LDL CHOLESTEROL,CALCULATED 160 mg/dL; POTASSIUM 4.2 mmol/L (3.5-4.5); SODIUM 136 mmol/L (135-145); TRIGLYCERIDES 112 mg/dL (48-352); VLDL CHOLESTEROL 22 mg/dL
[2023-06-24 13:20] LABS: THYROID STIMULATING HORMONE 1.39 uIU/mL (0.34-5.60)
== END 2023-06-24 07:56 | disposition home or self-care (01) ==
LOC: LAB.N 07:55
PROVIDERS: ATTEND Physician Assistant Medical
DX: Z00.00 Encounter for general adult medical examination without abnormal findings (principal); E78.5 Hyperlipidemia, unspecified; Z79.899 Other long term (current) drug therapy; Z12.5 Encounter for screening for malignant neoplasm of prostate
CPT/HCPCS: 36415; 80053; 80061; 81599; 83721; 84153; 84443; 85025

== ENCOUNTER 2023-12-10 07:21 | Outpatient (CLI) | payer MEDICARE, OTHER ==
[2023-12-10 08:01] LABS: CALCIUM 9.5 mg/dL (8.5-10.3); CREATININE 0.7 mg/dL (0.6-1.3); POTASSIUM 4.3 mmol/L (3.5-4.5)
== END 2023-12-10 07:22 | disposition home or self-care (01) ==
LOC: LAB 07:21
PROVIDERS: ATTEND Physician Assistant Medical
DX: G62.9 Polyneuropathy, unspecified (principal)
CPT/HCPCS: 36415; 80048; 82607

== ENCOUNTER 2023-12-25 08:18 | Outpatient (CLI) | payer MEDICARE, OTHER ==
--- NOTE | 2023-12-25 08:59 | Sleep Patient Instructions ---
Sleep Center Visit Summary - Patient Visit Information Reason for Visit: Annual follow-up for PAP therapy - Patient Instructions Additional Instructions: You will continue with CPAP therapy with pressure set at 11-15 cmH2O. A supply prescription will be updated with your DME supplier. We encourage you to continue to try to lose weight. Please follow up with the sleep care office in 1 year. - Clinic Information Contact: [facility] [address] [place] [address] [email or web address] T: [phone]
--- NOTE | 2023-12-25 09:02 | SLEEP CARE CONSULTATION ---
Information from patient questionnaire entered by Amy Barahona. I have reviewed and concur with the information entered by Amy Barahona. This document represents the service I personally performed and the decisions made by me, Kika Hinds ARNP. History of Present Illness Service Date and Time: 12/25/2023817 Previous diagnosis: Severe, Obstructive Sleep Apnea-Hypopnea Syndrome AHI: 33.9 Reason for follow up: annual (LAST SEEN 12/2022) Equipment type: CPAP (YUKI PT BRINGING IN SD CARD AND MACHINE) Equipment obtained from: Other ([facility]; getting supplies) Mask style: Nasal (Dreamwear) Backup mask available: Yes (old mask) Last cushion change: 1 week Prior sleep studies: Yes Year and Where: 2007 [facility] HPI additional information: REA FRANK was diagnosed to have severe, AHI 33.9, obstructive sleep apnea- hypopnea syndrome and returned today for CPAP therapy annual follow-up. Sleep Study - Results Prior sleep studies: Yes Year and Where: 2007 [facility] CPAP Compliance Data - Data Reviewed with Patient Average duration of nightly device use: 6 HRS 30 MINS Compliance rate %: 85.2 (12/24/22-12/23/23; 365/365 days used) Current pressure setting (cmH2O): 11-15 Average residual AHI: 2.8 Central apnea: 1.7 Average large leak: 4.9 L/min Subjective Patient concerns: denies: aerophagia, mask discomfort, air blowing in eyes, mask leak noise, condensation in mask/hose, nasal congestion, dry mouth, nose, throat, epistaxis Observed to snore while using device: No Current pressure setting perceived as: comfortable On therapy, patient: reports: sleeping better, awakening more refreshed, being more awake and alert during the day, more rested overall. denies: drowsiness while driving Initial Gilman Sleepiness Scale score: 2 Current Gilman Sleepiness Scale score: 6 (12/25/23) Allergies and Home Medications Known drug allergies: Yes (as listed) Drug allergies reviewed: Yes Home medication list reviewed: Yes (as updated in EMR) Allergy and home medication list: Allergies hydroxyzine Allergy (Verified 12/25/23 08:29) Unknown piroxicam [From Feldene] Allergy (Verified 12/25/23 08:29) Edema topiramate [From Topamax] Adverse Reaction (Verified 12/25/23 08:29) Unknown Review of Systems Review of systems same as previous: No (PERIPHERAL NEUROPATHY) Physical Exam Vital signs obtained and entered by: AMY Becerra MA Blood Pressure: 142/84 (RIGHT ARM) Cuff size: regular Heart Rate: 70 O2 Saturation: 97 Height: 6 ft 2 in Weight: 267 lb Body Mass Index: 34.2 BMI Classification: Obese Impression and Plan 1. Obstructive Sleep Apnea-Hypopnea Syndrome, severe, with good treatment compliance and good apnea control. On CPAP therapy, the patient has better sleep quality and is more rested overall. He ask about replacing his chinstrap. I will update his DME prescription that will have the chinstrap listed so he can get it replaced. Patient has significant improvement of their sleep apnea and is satisfied with current CPAP therapy. Patient denies problems with oral dryness, nasal congestion, epistaxis, skin irritation or aerophagia. Patient's apnea severity and rationale for treatment to reduce apnea, improve sleep quality and reduce cardiovascular and cerebrovascular events was reviewed. I also reviewed the benefit of consistent device use of CPAP for ventricular tachycardia history, depression/anxiety. 2. Obesity, unspecified. Currently patients BMI is 34.2. Obesity increases the risk of apnea, CPAP pressure requirements and overall health risks especially cardiovascular and diabetes. Thus patient is advised to lose weight. * Continue auto CPAP pressure at 11-15 cmH2O * Update supply prescription. * Notify me if snoring with mask or feeling that the pressure is too much or too little * Attempt to lose weight * Call this office if any problems using CPAP * Return for follow up in 12 months, or sooner if concerns arise Counseling Topics: Spare mask, Weight loss health impact Prescriptions: Device supplies Follow up with Sleep Care in: 1 year Visit Type: In Office Time Spent with Patient (minutes): 20 Provider Statement: I spent 100% of the Face to Face Visit with the patient with greater than 50% spent counseling the patient and coordination of care.
[2023-12-25 09:05] VITALS: BP 142/84; O2SAT 97
== END 2023-12-25 08:19 | disposition home or self-care (01) ==
LOC: SC 08:18
PROVIDERS: ATTEND Nurse Practitioner Family
DX: G47.33 Obstructive sleep apnea (adult) (pediatric) (principal); E66.9 Obesity, unspecified; Z68.34 Body mass index [BMI] 34.0-34.9, adult
CPT/HCPCS: 99213; G0463; 99212